=== PATIENT | female | born 1990 | race African-American/Black ===

== ENCOUNTER 2018-04-23 12:50 | Emergency (ER) | payer SELFPAY | END 2018-04-23 16:05 | disposition left against medical advice (07) | LOC: FTE 12:50 | DX: M79.631 Pain in right forearm (principal) | CPT/HCPCS: 99282 ==

== ENCOUNTER 2018-05-07 10:02 | Emergency (ER) | payer MEDICAID | END 2018-05-07 13:13 | disposition home or self-care (01) | LOC: FTE 10:02 | DX: M79.601 Pain in right arm (principal) | CPT/HCPCS: 73090; 73090-RT; 99283-25 ==